=== PATIENT | female | born 1935 | race African-American/Black ===

== ENCOUNTER 2021-08-12 12:09 | Outpatient (CLI) | payer MEDICARE, OTHER | END 2021-08-12 12:10 | disposition home or self-care (01) | LOC: CSHMAMMO 12:09 | PROVIDERS: ATTEND Nurse Practitioner Family | DX: Z12.31 Encounter for screening mammogram for malignant neoplasm of breast (principal) | CPT/HCPCS: 77063; 77067 ==

== ENCOUNTER 2022-11-06 06:45 | Day surgery (SDC) | payer MEDICARE, OTHER ==
[2022-10-28 14:19] VITALS: BMI 23.8
[2022-11-06] MEDS ORDERED: PROPOFOL 0 ML ONE (09:28)
[2022-11-06] MEDS ORDERED: PROPOFOL 20 ML ONE (09:43)
== END 2022-11-06 10:28 | disposition home or self-care (01) ==
LOC: CSHSDC 06:45
PROVIDERS: ATTEND Internal Medicine Gastroenterology
PROC: 0DB68ZX Excision of Stomach, Via Natural or Artificial Opening Endoscopic, Diagnostic (ICD-10-PCS; principal; 2022-11-06)
DX: K29.50 Unspecified chronic gastritis without bleeding (principal); K31.A0 Gastric intestinal metaplasia, unspecified; K25.9 Gastric ulcer, unspecified as acute or chronic, without hemorrhage or perforation; R10.10 Upper abdominal pain, unspecified; Z87.11 Personal history of peptic ulcer disease; I10 Essential (primary) hypertension; E78.5 Hyperlipidemia, unspecified; J30.9 Allergic rhinitis, unspecified; Z88.0 Allergy status to penicillin; Z91.048 Other nonmedicinal substance allergy status
CPT/HCPCS: 76700; 88305; 88342; J2704

== ENCOUNTER 2023-02-25 12:20 | Outpatient (CLI) | payer MEDICARE, OTHER | END 2023-02-25 12:21 | disposition home or self-care (01) | LOC: CSHMAMMO 12:20 | PROVIDERS: ATTEND Family Medicine | DX: Z12.31 Encounter for screening mammogram for malignant neoplasm of breast (principal) | CPT/HCPCS: 77063; 77067 ==